=== PATIENT | male | born 1965 | race Two or more races ===

== ENCOUNTER → 2020-04-12 | Outpatient (CLI) | payer OTHER ==
--- NOTE | 2020-04-12 15:51 | KCIC ---
EXAM: XR SKULL 1-3 VIEWS 04/12/2020 3:39 PM CLINICAL INDICATION: Screening for MRI. Prior craniotomy. COMPARISON: None TECHNIQUE: 2 views of the skull FINDINGS: There are surgical changes of craniotomy with radiopaque wires related to the craniotomy. No other radiopaque material seen. IMPRESSION: Surgical changes of craniotomy with radiopaque wires. Electronically signed by: Angelina Wu MD (04/12/2020 3:49 PM) [id number]
--- NOTE | 2020-04-13 10:38 | KCIC ---
EXAMINATION: MRI RIGHT LOWER EXTREMITY JOINT W INDICATIONS: Pain in right knee. Medial pain and tightness, hard to walk for one year. TECHNIQUE: Multiplanar multisequence MRI of the right knee was obtained without contrast. COMPARISON: None. FINDINGS: Exam is limited by motion artifact. MENISCI: There is a radial tear at the posterior horn-body junction medial meniscus. There is also a suspected tiny piece of meniscal tissue displaced into the inferior medial recess (image [id number] serie s 9). The lateral meniscus is intact. LIGAMENTS: The anterior and posterior cruciate ligaments are intact. The medial collateral ligament and lateral collateral ligament complex are intact. EXTENSOR MECHANISM: Quadriceps tendon is intact. There is mild tendinopathy of the proximal patellar tendon. Fat pads and retinacula are intact. BONES AND CARTILAGE: No acute fracture. There is deep partial thickness cartilage loss with small haddad bchondral cysts and edema at the central and inner lateral trochlea. There is superficial partial-thi ckness cartilage loss in the weightbearing medial femoral condyle. Lateral compartment cartilage is i ntact. OTHER: No joint effusion. A Harp cyst measures approximately 1.4 x 1.0 x 5.7 cm. Remaining tendons are intact. Muscles are normal. Mild prepatellar edema. IMPRESSION: 1. Radial tear of the posterior horn-body junction medial meniscus. There is a suspected tiny menisca l fragment in the inferior medial recess along the body with reactive edema along the medial aspect o f the knee. 2. Patellofemoral and medial compartment cartilage loss, greatest in the patellofemoral compartment w here there are areas of deep partial-thickness cartilage loss. 3. Large Harp cyst. Electronically signed by: Angelina Wu MD (04/13/2020 10:36 AM) [id number]
== END ==
LOC: KCIC MRI 15:01
PROVIDERS: ATTEND Physician Assistant
DX: S83.241A Other tear of medial meniscus, current injury, right knee, initial encounter (principal); M71.21 Synovial cyst of popliteal space [Baker], right knee; X58.XXXA Exposure to other specified factors, initial encounter; Y93.89 Activity, other specified; Y92.89 Other specified places as the place of occurrence of the external cause; Y99.8 Other external cause status; Z87.828 Personal history of other (healed) physical injury and trauma; Z98.890 Other specified postprocedural states
CPT/HCPCS: 70250; 73721

== ENCOUNTER → 2020-06-11 | Outpatient (CLI) | payer OTHER ==
[~2020-06-11] MED LIST: DIVA-53 PO; HYDR-2761 PO; LISI10TA16 PO; QUET400T4 PO; VENL75TA PO
== END ==
LOC: LAB 15:27
PROVIDERS: ATTEND Orthopaedic Surgery
DX: Z01.812 Encounter for preprocedural laboratory examination (principal); S83.421A Sprain of lateral collateral ligament of right knee, initial encounter; X58.XXXA Exposure to other specified factors, initial encounter; Y93.89 Activity, other specified; Y92.89 Other specified places as the place of occurrence of the external cause; Y99.8 Other external cause status; Z20.822 Contact with and (suspected) exposure to COVID-19
CPT/HCPCS: U0003; U0005